=== PATIENT | male | born 1995 | race Caucasian/White ===

== ENCOUNTER 2019-04-19 19:30 | Emergency (ER) | payer BC ==
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
[2019-04-19 22:02] VITALS: BP 140/67
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
== END 2019-04-19 22:02 | disposition home or self-care (01) ==
LOC: ED 19:30
DX: M79.671 Pain in right foot (principal)
CPT/HCPCS: 99282